=== PATIENT | male | born 1955 | race Caucasian/White ===

== ENCOUNTER → 2021-09-18 13:12 | Outpatient (BNVA) | payer MEDICARE, SELFPAY | PROVIDERS: PCP Family Medicine; Visit Provider Internal Medicine | DX: M53.3 Sacrococcygeal disorders, not elsewhere classified (principal); Z11.59 Encounter for screening for other viral diseases | CPT/HCPCS: 99204 ==

== ENCOUNTER 2021-09-29 14:29 | Outpatient (CLI) | payer MEDICARE, SELFPAY ==
--- NOTE | 2021-09-29 14:40 | XR_ITS ---
WS: [id number] XR thoracic spine 3V* [id number] REASON FOR EXAM: M53.3 - Sacrococcygeal disorders, not elsewhere classified FINDINGS: Mild scoliosis convex left. Mild endplate compression deformities T7-T11. Bridging osteophyte formation T7-T11. Calcified intervertebral disc spaces T7-T11. XR/XR thoracic spine 3V* [id number] IMPRESSION: Degenerative spondylosis in the mid and lower thoracic spine as above.
--- NOTE | 2021-09-29 14:40 | XR_ITS ---
WS: [id number] XR cervical spine fl/ex [id number] REASON FOR EXAM: M53.3 - Sacrococcygeal disorders, not elsewhere classified FINDINGS: Straightening of the normal lordosis of the cervical spine. No significant compression deformity or other focal vertebral body abnormality of the cervical spine. Moderate narrowing of the intervertebral disc spaces C3-C4 and C5-C6 and C6-C7. Small anterior osteo phytes at these levels. No significant listhesis. No abnormal vertebral body movement with flexion and extension. XR/XR cervical spine fl/ex [id number] IMPRESSION: Degenerative spondylosis of the cervical spine as above.
--- NOTE | 2021-09-29 14:40 | XR_ITS ---
WS: [id number] XR sacroiliac jts m 3V [id number] REASON FOR EXAM: M53.3 - Sacrococcygeal disorders, not elsewhere classified FINDINGS: No fracture or dislocation. Sacroiliac joints are distinct and well defined. No marginal erosions, bridging, or fusion. XR/XR sacroiliac jts m 3V [id number] IMPRESSION: Normal sacroiliac joints.
[2021-09-29 15:58] LABS: Erythrocyte Sedimentation Rate 1 mm/hr (0-10)
[2021-09-29 16:18] LABS: C Reactive Protein 0.6 mg/L (0.0-4.9)
[2021-09-29 16:35] LABS: Hepatitis B Core AB, Total Non-Reactive (Nonreactive); Hepatitis B Surface Antigen Non-Reactive (Nonreactive); Hepatitis C Virus Antibody Non-Reactive (Nonreactive)
[2021-10-02 14:31] LABS: HLA-B27 NEGATIVE (NEGATIVE)
== END 2021-09-29 14:30 | disposition home or self-care (01) ==
LOC: RAD 14:37
PROVIDERS: PCP Family Medicine; Visit Provider Internal Medicine
DX: M53.3 Sacrococcygeal disorders, not elsewhere classified (principal); M45.0 Ankylosing spondylitis of multiple sites in spine; M54.50 Low back pain, unspecified; Z11.59 Encounter for screening for other viral diseases
CPT/HCPCS: 72040; 72072; 72202; 85651; 86140; 86704; 86803; 86812; 87340

== ENCOUNTER → 2021-10-21 14:47 | Outpatient (BNVA) | payer MEDICARE, SELFPAY | PROVIDERS: PCP Family Medicine; Visit Provider Urology | DX: R39.9 Unspecified symptoms and signs involving the genitourinary system (principal); R97.20 Elevated prostate specific antigen [PSA] | CPT/HCPCS: 81003 ==

== ENCOUNTER → 2022-03-03 14:37 | Outpatient (BNVA) | payer MEDICARE, SELFPAY | PROVIDERS: PCP Family Medicine; Visit Provider Urology | DX: R97.20 Elevated prostate specific antigen [PSA] (principal); R39.9 Unspecified symptoms and signs involving the genitourinary system | CPT/HCPCS: 99214 ==

== ENCOUNTER 2022-03-03 14:43 | Outpatient (CLI) | payer MEDICARE, SELFPAY | END 2022-03-03 14:44 | disposition home or self-care (01) | PROVIDERS: PCP Family Medicine; Visit Provider Urology | DX: R97.20 Elevated prostate specific antigen [PSA] (principal); M48.10 Ankylosing hyperostosis [Forestier], site unspecified; M54.50 Low back pain, unspecified | CPT/HCPCS: 36415; 81003; 84153; 99214 ==

== ENCOUNTER 2022-03-04 12:33 | Outpatient (CLI) | payer MEDICARE, SELFPAY ==
[2022-03-04 12:56] LABS: Basophils % 0.6 %; Eosinophils # 0.2 10^3/uL (0.0-0.8); Eosinophils % 2.9 %; Hematocrit 42.9 % (42.0-52.0); Hemoglobin 14.2 g/dL (11.7-16.6); Lymphocytes # 1.7 10^3/uL (0.8-4.8); Lymphocytes % 24.4 %; Mean Corpuscular HGB Conc 33.1 g/dL (30.0-36.0); Mean Corpuscular Hemoglobin 30.4 pg (28.0-34.0); Mean Corpuscular Volume 91.9 fl (80-94); Mean Platelet Volume 9.6 fL (7.4-10.4); Monocytes # 0.5 10^3/uL (0.2-0.9); Monocytes % 7.1 %; Neutrophils # 4.62 10^3/uL (1.8-7.7); Neutrophils % 64.7 %; Nucleated Red Blood Cells % 0 %; Platelet Count 248 10^3/cmm (130-400); Red Blood Count 4.67 10^6/uL (4.1-5.3); Red Cell Distribution Width 12.9 % (12.1-15.1); White Blood Count 7.1 10^3/uL (4.0-10.0)
[2022-03-04 13:00] LABS: Erythrocyte Sedimentation Rate 3 mm/hr (0-10)
[2022-03-04 13:36] LABS: Alanine Aminotransferase 40 U/L (0-41); Albumin Level 4.3 g/dL (3.5-5.2); Alkaline Phosphatase 64 IU/L (40-130); Anion Gap 13.1 (5-19); Aspartate Amino Transferase 34 U/L (0-40); Blood Urea Nitrogen 13 mg/dL (8-23); Calcium 9.2 mg/dL (8.5-10.5); Carbon Dioxide 26 mmol/L (22-29); Chloride 104 mmol/L (98-107); Globulin 2.5 g/dL (1.3-4.6); Glomerular Filtration Rate 135.2 mL/min (90-130); Glucose 89 mg/dL (65-115); Osmolality Calculated 288 mOsm/kg (285-295); Potassium 4.1 mmol/L (3.5-5.1); Sodium 139 mmol/L (136-145); Total Bilirubin 0.6 mg/dL (0.15-1.2); Total Protein 6.8 g/dL (6.6-8.7)
== END 2022-03-04 12:34 | disposition home or self-care (01) ==
LOC: LAB 12:34
PROVIDERS: PCP Family Medicine; Visit Provider Internal Medicine
DX: M48.10 Ankylosing hyperostosis [Forestier], site unspecified (principal); R97.20 Elevated prostate specific antigen [PSA]; M53.3 Sacrococcygeal disorders, not elsewhere classified
CPT/HCPCS: 36415; 80053; 85025; 85651; 86140; 99213; 99214

== ENCOUNTER 2022-06-04 14:07 | Outpatient (CLI) | payer MEDICARE, SELFPAY | END 2022-06-04 14:08 | disposition home or self-care (01) | LOC: LAB 14:07 | PROVIDERS: Visit Provider Urology | DX: R97.20 Elevated prostate specific antigen [PSA] (principal); R39.9 Unspecified symptoms and signs involving the genitourinary system; R33.9 Retention of urine, unspecified | CPT/HCPCS: 36415; 81003; 84153; 99214 ==

== ENCOUNTER → 2024-05-04 10:30 | Outpatient (BNVA) | payer MEDICARE, SELFPAY | PROVIDERS: Visit Provider Student in an Organized Health Care Education/Training Program | DX: Z12.11 Encounter for screening for malignant neoplasm of colon (principal) | CPT/HCPCS: 99024; 99204 ==

== ENCOUNTER 2024-06-19 07:25 | Day surgery (SDC) | payer MEDICARE, SELFPAY ==
[2024-06-19 07:36] VITALS: BMI 23.7
[2024-06-19 07:46] VITALS: BP 126/70; PULSE 56; RESP 18; TEMP 36.2; O2SAT 100
[2024-06-19] MEDS: sodium chloride 0.9% 1,000 ML 30 ML IV (07:50)
--- NOTE | 2024-06-19 08:16 | W.PM.OPSFHP ---
Same Day Surgery H&P Indication for Procedure/HPI DATE OF PROCEDURE: June 19, 2024 CHIEF COMPLAINT/INDICATIONFOR SURGICAL PROCEDURE: screening colonoscopy PREOP DIAGNOSIS: screening colonoscopy PLANNED PROCEDURE: Operation Date: 06/19/24 08:30 Proposed Procedures p Colonoscopy 50059, G0105, Z12.11(Not Applicable) - Jassi Villareal MD Medications/Allergies* Home Medications Medication Instructions Recorded Confirmed Type Silica 1 tab PO BID 10/21/21 06/15/24 History Striction D 1 cap PO BID 06/15/24 06/15/24 History amino ac-vit [id number] 1 tab PO BID 06/15/24 06/15/24 History tablet garlic 1,000 mg capsule 1,000 mg PO BID 06/15/24 06/15/24 History turmeric 150 mg-herbal complex 1 cap PO BID 06/15/24 06/15/24 History no.278 capsule zinc 50 mg capsule 50 mg PO DAILY 06/15/24 06/15/24 History Allergies/Adverse Reactions Allergy/AdvReac Type Severity Reaction Status Date / Time No Known Allergies Allergy Verified 05/04/24 11:07 Current Medications: Generic Name Dose Route Start Last Admin Trade Name Freq PRN Reason Stop Dose Admin Sodium Chloride 1,000 mls @ 30 mls/hr 06/19/24 07:30 06/19/24 07:50 Sodium Chloride 0.9% IV 30 mls/hr .Q24H TONIE Administration Pertinent History/Comorbid Conditions* Medical History (Updated 06/04/22 @ 17:18 by Carlitos Mehta MD) Incomplete bladder emptying DISH (diffuse idiopathic skeletal hyperostosis) Lower urinary tract symptoms (LUTS) Elevated PSA Sacroiliac joint disease Lumbago Family History (Updated 10/21/21 @ 15:04 by Vannesa Perez LPN) Father, at age 71 Rheumatoid arthritis Father Diabetes Father Arthritis Mother Hyperlipidemia Father Heart attack Father Hypertension Father Denies family history of Lupus Dementia Chronic kidney disease (CKD) Bleeding disorder Lung disease Cancer Stroke Social History Smoking and tobacco/nicotine status: never used tobacco/nicotine Alcohol intake: never Household members: none Marital status: Single Current occupational status: retired Pertinent Exam Findings alert, oriented x 3, clear to auscultation bilaterally, regular rate & rhythm and procedure specific exam findings abdomen soft, NT, ND Recommendations Surgery/Procedure today Other Plans: Endoscopy today Coding Level of Care Code Acute Code for Chg Fwd
--- NOTE | 2024-06-19 08:23 | ANES.PREANE2 ---
Pre-Anesthetic Assessment Height/Weight: Height 1.83 m Weight 79.379 kg Temp Pulse Resp BP Pulse Ox O2 Del Method 97.2 F L 56 L 18 126/70 100 Room Air 06/19/24 07:46 06/19/24 07:46 06/19/24 07:46 06/19/24 07:46 06/19/24 07:46 06/19/24 07:46 Preop Diagnosis: screening colonoscopy Operation Date: 06/19/24 08:30 Proposed Procedures p Colonoscopy 12624, G0105, Z12.11(Not Applicable) - Jassi Villareal MD Familial anesthetic complications: none Was Beta Amanda taken within 24 hours: N/A Was Clonidine taken within 24 hours: N/A Last intake: Intake Last Liquid Date 06/18/24 Last Liquid Time 22:30 Last Solid Date 06/17/24 Last Solid Time 18:00 Social No alcohol and No tobacco Exam alert, oriented x 3, clear to auscultation bilaterally and regular rate & rhythm Airway Submandibular: within normal limits Cervical ROM: within normal limits Mallampati: Class II Dentition: partials (bridges) Pulmonary None reported CV/HEM None reported None reported Hepatic None reported GI None reported Metabolic None reported Musc/skel Diffuse Idiopathic Skeletal Hyoerostosis Neuropsych None reported Anesthetic Plan ASA status: 1 Anesthesia: MAC Medications/Allergies Home Medications Medication Instructions Recorded Confirmed Last Taken Type Silica 1 tab PO BID 10/21/21 06/15/24 06/17/24 History Striction D 1 cap PO BID 06/15/24 06/15/24 06/17/24 History amino ac-vit [id number] 1 tab PO BID 06/15/24 06/15/24 06/17/24 History tablet garlic 1,000 mg capsule 1,000 mg PO BID 06/15/24 06/15/24 06/17/24 History turmeric 150 mg-herbal complex 1 cap PO BID 06/15/24 06/15/24 06/17/24 History no.278 capsule zinc 50 mg capsule 50 mg PO DAILY 06/15/24 06/15/24 06/17/24 History Allergies Allergy/AdvReac Type Severity Reaction Status Date / Time No Known Allergies Allergy Verified 05/04/24 11:07 Current Medications Generic Name Dose Route Start Last Admin Trade Name Freq PRN Reason Stop Dose Admin Sodium Chloride 1,000 mls @ 30 mls/hr 06/19/24 07:30 06/19/24 07:50 Sodium Chloride 0.9% IV 30 mls/hr .Q24H TONIE Administration PFSH Anesthesia Medical History (Updated 06/04/22 @ 17:18 by Carlitos Mehta MD) Incomplete bladder emptying DISH (diffuse idiopathic skeletal hyperostosis) Lower urinary tract symptoms (LUTS) Elevated PSA Sacroiliac joint disease Lumbago Family History Father , at age 71 Diabetes Hyperlipidemia Hypertension Rheumatoid arthritis Heart attack Mother Arthritis Denies family history of Lupus Dementia Chronic kidney disease (CKD) Bleeding disorder Lung disease Cancer Stroke Social History Smoking and tobacco/nicotine status: never used tobacco/nicotine Alcohol intake: never Household members: none Marital status: Single Current occupational status: retired Data Anesthesia Cardiac Studies: No Data to Display
[2024-06-19 09:13] VITALS: BP 93/57; PULSE 67; RESP 16; TEMP 36.1; O2SAT 94
[2024-06-19 09:42] VITALS: BP 103/70; PULSE 67; RESP 17; O2SAT 97
--- NOTE | 2024-06-19 09:58 | ANE.PACU2 ---
Inpatient post-anesthesia follow up: Airway intact: Yes Vital signs: Temperature 97.0 F Pulse Rate 67 Respiratory Rate 17 Blood Pressure 103/70 Pulse Oximetry 97 Oxygen Delivery Me thod Room Air Oxygen Flow Rate 2 Fraction of Inspir ed Oxygen Hydration adequate: Yes Nausea and vomiting: No Pain level: 1 Mental status: Baseline
== END 2024-06-19 09:58 | disposition home or self-care (01) ==
PROVIDERS: PCP Family Medicine; Visit Provider Student in an Organized Health Care Education/Training Program
PROC: 0DJD8ZZ Inspection of Lower Intestinal Tract, Via Natural or Artificial Opening Endoscopic (ICD-10-PCS; CPT 45378; principal; 2024-06-19 08:30)
DX: Z12.11 Encounter for screening for malignant neoplasm of colon (principal)
CPT/HCPCS: G0121; J2704; J3490; J7030